=== PATIENT | male | born 1955 | race Two or more races ===

== ENCOUNTER 2018-07-14 07:08 | Day surgery (SDC) | payer OTHER ==
[2018-07-14] MEDS ORDERED: DUI500 PO (13:05)
[2018-07-14] MEDS ORDERED: OXYC1TAB9 PO (13:05)
== END 2018-07-14 15:30 | disposition home or self-care (01) ==
LOC: CIR.AMB 07:08
DX: M75.122 Complete rotator cuff tear or rupture of left shoulder, not specified as traumatic (principal)